=== PATIENT | male | born 1960 | race Asian ===

== ENCOUNTER 2019-04-20 10:48 | Emergency (ER) | payer OTHER ==
[~2019-04-20] VITALS: Ht 172.7 cm; Wt 68.0 kg
[2019-04-20 11:27] LABS: BASOPHIL % 0.2 % (0-2); PLATELET COUNT 241 x10^3mcL (130-400); RED CELL DISTRIBUTION WIDTH 14.1 % (11.5-14.5)
[2019-04-20 11:35] LABS: microscopic required? NO
[2019-04-20 11:37] LABS: CALCIUM 8.8 mg/dL (8.5-10.1); CARBON DIOXIDE 28.4 mmol/L (21-32); CHLORIDE SERUM 107 mmol/L (98-107); GFR1 > 60 mL/min; GLUCOSE SERUM 102 mg/dL (74-106); SODIUM SERUM 144 mmol/L (136-145)
[2019-04-20 11:41] LABS: ALBUMIN 3.7 g/dL (3.4-5.0); ALKALINE PHOSPHATASE 100 U/L (46-116); ALT/SGPT 38 U/L (16-63); AST/SGOT 12 U/L (15-37); BILIRUBIN TOTAL 0.85 mg/dL (0.20-1.00); LIPASE 62 IU/L (73-393)
[2019-04-20 11:42] LABS: UA SPECIFIC GRAVITY 1.015 (1.005-1.035); urine erythrocyte NEGATIVE (NEGATIVE)
[2019-04-20 13:50] VITALS: BP 113/70
== END 2019-04-20 13:50 | disposition home or self-care (01) ==
LOC: ED 10:48
PROVIDERS: Emergency Medicine
DX: R10.13 Epigastric pain (principal); R19.7 Diarrhea, unspecified; R50.9 Fever, unspecified
CPT/HCPCS: 87046; 87046-59; J1885; J2405; J7030